=== PATIENT | female | born 1950 | race Caucasian/White ===

== ENCOUNTER 2025-04-05 10:24 | Emergency (ER) | payer MEDICARE, BC ==
[2025-04-05 11:28] VITALS: BP 117/56; PULSE 80
== END 2025-04-05 11:16 | disposition home or self-care (01) ==
LOC: VM.ED 10:24
DX: S52.502A Unspecified fracture of the lower end of left radius, initial encounter for closed fracture (principal); S01.112A Laceration without foreign body of left eyelid and periocular area, initial encounter; I10 Essential (primary) hypertension; Z79.899 Other long term (current) drug therapy; Z90.710 Acquired absence of both cervix and uterus; W19.XXXA Unspecified fall, initial encounter
CPT/HCPCS: 12011; 99283